=== PATIENT | female | born 1985 | race Caucasian/White ===

== ENCOUNTER 2017-01-25 12:58 | Day surgery (SDC) | payer OTHER ==
[2017-01-25] MEDS ORDERED: PEPCID IV ONE (13:15)
[2017-01-25] MEDS ORDERED: SODIUM CHLORIDE 0.9% 10 ML ONE (13:26)
[2017-01-25] MEDS ORDERED: LR 1,000 ML IV SCH (14:00)
[2017-01-25] MEDS ORDERED: LR 1,000 ML ONE (14:20)
--- NOTE | 2017-01-25 14:36 | HISTORY AND PHYSICAL ---
PREOPERATIVE DIAGNOSES: 1. Blighted ovum. 2. Tobacco use. CONDITION: Stable. HISTORY OF PRESENT ILLNESS: Ms. Zurita is a 31-year-old 1 at approximately 9 weeks gestation who through serial ultrasounds was found to have a blighted ovum, and she presents today for a suction dilation and curettage. She is without complaints. She has been given options of medication and expectant management. She desires the surgical management. PAST MEDICAL HISTORY: She has no past medical history. PAST SURGICAL HISTORY: No past surgical history. MEDICATIONS: She is not taking any medications now. ALLERGIES: She is not allergic to any medications. SOCIAL HISTORY: Significant for tobacco use, 1 pack per day. FAMILY HISTORY: Noncontributory. PHYSICAL EXAMINATION: VITAL SIGNS: Temperature 99.4 degrees, blood pressure 153/83, pulse 89, respiration 18. She is 5 feet 4 inches, 180 pounds. GENERAL: She is alert and cooperative. She does not appear to be in any distress. NECK: Supple. LUNGS: Clear. HEART: Regular sinus rhythm. ABDOMEN: Soft. PELVIC: Deferred. EXTREMITIES: No cyanosis, clubbing, or edema in her extremities. ASSESSMENT: Blighted ovum. PLAN: Suction dilation and curettage.
[2017-01-25] MEDS ORDERED: CYTOTEC ONE (14:47)
--- NOTE | 2017-01-25 15:19 | OPERATIVE NOTE ---
PROCEDURE DATE: 01/25/2017 PREOPERATIVE DIAGNOSES: Blighted ovum and tobacco abuse. POSTOPERATIVE DIAGNOSES: Blighted ovum and tobacco abuse. PROCEDURE: Suction D and C. PHYSICIAN: Dr. Benito Mcneil. ANESTHESIA: General endotracheal with Dr. Lim in dorsal lithotomy position. FINDINGS: She had slightly enlarged uterus. ESTIMATED BLOOD LOSS: 200 mL. PATHOLOGY: Products of conception. COMPLICATIONS: No complications. DRAINS: No drains. Please refer to Ms. Zurita's H and P dictation. She was admitted. All questions were answered. She was brought to the operating room where she was placed under general endotracheal anesthesia and prepped and draped in dorsal lithotomy position and her bladder was drained of clear urine. A weighted speculum was placed in the vagina. Bimanual exam reveals a slightly enlarged anteverted uterus. Anterior lip of the cervix was grasped with a single-tooth tenaculum. Uterus was sounded to 9 cm. I used Hegar dilators. The cervix was dilated up to admit an 8 suction catheter. Once this was done, the products were suctioned out. Once it was felt all the products were suctioned out, a gentle scraping was done. No further tissue was noted. Final suction did not reveal any clots so the weighted speculum was removed. The single-toothed tenaculum was removed. Uterus was massaged. She was given a rectal dose of 600 mg of Cytotec and taken down from the dorsal lithotomy position, awakened, moved to the table and brought to the recovery room in stable condition.
[2017-01-25] MEDS: MORPHINE ONE ×2 (15:28→15:34)
[2017-01-25 16:47] VITALS: BP 136/81
[2017-01-25] MEDS ORDERED: TORADOL IV ONE (17:30)
[2017-01-25] MEDS ORDERED: NORCO-5 PO PRN (17:30)
[2017-01-26] MEDS ORDERED: TORADOL ONE (17:28)
[2017-01-26] MEDS ORDERED: XYLOCAINE-MPF 2% ONE (17:28)
[2017-01-26] MEDS ORDERED: ZOFRAN ONE (17:28)
== END 2017-01-25 17:30 | disposition home or self-care (01) ==
LOC: P.OPS 12:58 → P.WC 13:00 → P.OPS 17:30
PROVIDERS: ATTEND Obstetrics & Gynecology
DX: O02.0 Blighted ovum and nonhydatidiform mole (principal); F17.210 Nicotine dependence, cigarettes, uncomplicated
CPT/HCPCS: J1885; J2270; J2405; J7120